=== PATIENT | female | born 2000 | race African-American/Black ===

== ENCOUNTER 2018-10-18 23:51 | Emergency (ER) | payer BC ==
[~2018-10-18] VITALS: Ht 170.2 cm; Wt 100.0 kg
[2018-10-19 01:40] VITALS: BP 144/93
== END 2018-10-19 01:44 | disposition home or self-care (01) ==
LOC: ER 23:51
DX: S10.81XA Abrasion of other specified part of neck, initial encounter (principal); S29.011A Strain of muscle and tendon of front wall of thorax, initial encounter; S21.101A Unspecified open wound of right front wall of thorax without penetration into thoracic cavity, initial encounter; V43.62XA Car passenger injured in collision with other type car in traffic accident, initial encounter; Y93.89 Activity, other specified; Y92.488 Other paved roadways as the place of occurrence of the external cause
CPT/HCPCS: 71045; 99283